=== PATIENT | female | born 1970 | race Caucasian/White ===

== ENCOUNTER 2017-11-17 00:30 | Emergency (ER) | END 2017-11-17 06:39 | disposition home or self-care (01) ==

== ENCOUNTER 2017-11-21 01:49 | Inpatient (IN) | END 2018-01-01 17:10 | disposition home or self-care (01) | DRG 870 ==

== ENCOUNTER 2018-01-15 03:07 | Emergency (ER) | END 2018-01-15 07:37 | disposition home or self-care (01) ==

== ENCOUNTER 2018-06-20 21:59 | Emergency (ER) | END 2018-06-20 22:50 | disposition home or self-care (01) ==